=== PATIENT | male | born 1970 | race Caucasian/White ===

== ENCOUNTER 2019-12-16 06:58 | Emergency (ER) | payer OTHER ==
[~2019-12-16] VITALS: Ht 175.3 cm; Wt 80.2 kg
[~2019-12-16 06:58] MED LIST: LISI-170 PO
[2019-12-16] MEDS ORDERED: SODIUM CHLORIDE FLUSH 10ML SYR IVF ONE (07:30)
[2019-12-16] MEDS ORDERED: ASPIRIN 81 MG TABLET CHEW PO ONE (07:30)
[2019-12-16] MEDS ORDERED: METOPROLOL 1 MG/ML, 5ML IVPush PRN (07:30)
[2019-12-16] MEDS ORDERED: ASPIRIN 81 MG TABLET CHEW ONE (07:33)
[2019-12-16] MEDS ORDERED: MORPHINE SULFATE 4 MG/ML, 1ML ONE ×2 (07:34→10:44)
[2019-12-16] MEDS: MORPHINE SULFATE 4 MG/ML, 1ML IVPush PRN ×2 (07:37→10:45)
--- NOTE | 2019-12-16 07:40 | NUR ---
PT BROUGHT BACK FROM TRIAGE WITH CHIEF COMPLAINT OF LEFT NECK PAIN/BURNING SINCE WEDNESDAY. DENIES CP, SOB, FEVER, COUGH, N/V, OR RECENT TRAUMA. PT IS ALERT ORIENTED, WARM AND DRY.
[2019-12-16 07:42] LABS: BASOPHILS # (AUTO) 0.02 x10^3/uL (0-0.1); BASOPHILS % (AUTO) 0 % (0-1); EOSINOPHILS # (AUTO) 0.08 x10^3/uL (0-0.4); EOSINOPHILS % (AUTO) 1 % (1-7); LYMPHOCYTES # (AUTO) 0.88 x10^3/uL (1-3.4); LYMPHOCYTES % (AUTO) 14 % (22-44); MD NO; MEAN CORPUSCULAR HEMOGLOBIN 33.4 pg (27.5-34.5); MEAN CORPUSCULAR HGB CONC 34.1 g/dL (33.2-36.2); MEAN PLATELET VOLUME 7.4 fL (7.4-10.4); MONOCYTES # (AUTO) 0.44 x10^3/uL (0.2-0.8); MONOCYTES % (AUTO) 7 % (2-9); NEUTROPHILS # (AUTO) 4.72 x10^3/uL (1.8-6.8); NEUTROPHILS % (AUTO) 77 % (42-75); PLATELET COUNT 267 x10^3/uL (130-400); RED BLOOD COUNT 5.15 x10^6/uL (4.38-5.82); RED CELL DISTRIBUTION WIDTH 12.2 % (9.4-14.8)
[2019-12-16] MEDS ORDERED: METOPROLOL 1 MG/ML, 5ML ONE (07:48)
[2019-12-16 08:03] LABS: ALANINE AMINOTRANSFERASE 32 U/L (12-78); ALBUMIN 3.8 g/dL (3.4-5.0); ANION GAP 6 mmol/L (5-15); CALCIUM 8.9 mg/dL (8.5-10.1); CHLORIDE 104 mmol/L (98-107); CREATININE 0.87 mg/dL (0.7-1.3)
[2019-12-16 08:07] LABS: ALKALINE PHOSPHATASE 89 U/L (45-117); BILIRUBIN,TOTAL 1.7 mg/dL (0.2-1.0); TOTAL PROTEIN 7.8 g/dL (6.4-8.2); TROPONIN I < 0.015 ng/mL (0.000-0.045)
--- NOTE | 2019-12-16 08:29 | NUR ---
Patient remains pain free. Call light in reach. Pt remains hypertensive, will notify provider.
--- NOTE | 2019-12-16 09:00 | NUR ---
Ermd notified of BP
--- NOTE | 2019-12-16 09:32 | NUR ---
patient resting in [facility]. call light with in reach. AOx4 awaiting ultrasound.
--- NOTE | 2019-12-16 10:45 | NUR ---
US AT BEDSIDE
[2019-12-16] MEDS ORDERED: LISINOPRIL 20 MG TABLET ONE (11:24)
[2019-12-16] MEDS ORDERED: LISINOPRIL 20 MG TABLET PO ONE (11:30)
--- NOTE | 2019-12-16 12:10 | NUR ---
PT RESTING IN BED, CALL LIGHT IN REACH. NO COMPLAINTS AT THIS TIME.
--- NOTE | 2019-12-16 12:36 | NUR ---
[facility] AT BEDSIDE TO DISCUSS POC
[2019-12-16] MEDS ORDERED: LORazepam 2 MG/ML, 1ML ONE (12:48)
[2019-12-16 12:53] VITALS: BP 174/112
--- NOTE | 2019-12-16 12:53 | NUR ---
Pt to MRI at this time.
[2019-12-16] MEDS ORDERED: LORazepam 2 MG/ML, 1ML IVPush ONE (13:00)
[2019-12-16] MEDS ORDERED: GADOTERATE 10 MMOL/20 ML SYR ONE (13:28)
--- NOTE | 2019-12-16 13:50 | NUR ---
Pt back from MRI, resting in bed. no complaints at this time.
--- NOTE | 2019-12-16 14:10 | NUR ---
ermd at bedside to discuss poc
--- NOTE | 2019-12-16 14:11 | NUR ---
Discharge instructions reviewed.
== END 2019-12-16 14:17 | disposition home or self-care (01) ==
LOC: ED 07:57
DX: M54.12 Radiculopathy, cervical region (principal); M54.2 Cervicalgia; I10 Essential (primary) hypertension; R94.31 Abnormal electrocardiogram [ECG] [EKG]; Z87.891 Personal history of nicotine dependence
CPT/HCPCS: 36415; 71045; 72156; 80053; 84484; 85025; 93005; 93880; 96374; 96375; 96376; 99285; A9575; J2060; J2270